=== PATIENT | female | born 1950 | race Caucasian/White ===

== ENCOUNTER 2021-12-26 08:45 | Day surgery (SDC) | payer MEDICARE, OTHER ==
[2021-12-26] MEDS ORDERED: LACTATED RINGERS 1,000 ML IV ONE (09:11)
[2021-12-26] MEDS ORDERED: CEFAZOLIN SODIUM IN 0.9 % NACL 2 GM/50 ML BAG IV ONE (09:32)
--- NOTE | 2021-12-26 10:07 | ANESTHESIA ---
Pre-Anesthesia VS, & Labs - Diagnosis R breast CA - Procedure R breast lumpectomy Vital Signs: Temp Pulse Resp BP Pulse Ox 36.6 C 65 16 149/91 H 97 12/26/21 09:05 12/26/21 09:05 12/26/21 09:05 12/26/21 09:05 12/26/21 09:05 Height: 5 ft 6 in Weight (kg): 98.2 kg Body Mass Index: 34.9 BMI Classification: Obese - NPO >8 hours - Is Patient ?: No Home Medications and Allergies Home Medications: Ambulatory Orders Aspirin [Aspirin EC] 81 mg PO DAILY 12/20/21 Atorvastatin Calcium 40 mg PO DAILY 12/20/21 Levothyroxine Sodium [Levothyroxine] 150 mcg PO DAILY 12/20/21 Lisinopril [Zestril] 40 mg PO DAILY 12/20/21 N-Acetycysteine 1,200 mg PO DAILY 12/20/21 PARoxetine HCl [Paxil] 20 mg PO DAILY 12/20/21 Sumatriptan Succinate [Imitrex] 50 mg PO PRN PRN 12/20/21 hydroCHLOROthiazide [Hydrodiuril] 12.5 mg PO DAILY 12/20/21 Aspirin [Aspirin EC] 81 mg PO DAILY 12/20/21 Atorvastatin Calcium 40 mg PO DAILY 12/20/21 Levothyroxine Sodium [Levothyroxine] 150 mcg PO DAILY 12/20/21 Lisinopril [Zestril] 40 mg PO DAILY 12/20/21 N-Acetycysteine 1,200 mg PO DAILY 12/20/21 PARoxetine HCl [Paxil] 20 mg PO DAILY 12/20/21 Sumatriptan Succinate [Imitrex] 50 mg PO PRN PRN 12/20/21 hydroCHLOROthiazide [Hydrodiuril] 12.5 mg PO DAILY 12/20/21 Allergies/Adverse Reactions: Allergies Allergy/AdvReac Type Severity Reaction Status Date / Time No Known Drug Allergies Allergy Verified 12/20/21 15:33 Anes History & Medical History - Anesthetic History Anesthesia Complications: reports: Difficult airway Family history of Anesthesia Complications: Denies Family history of Malignant Hyperthermia: Denies - Medical History Cardiovascular: reports: Hypertension, High cholesterol, Murmur, Other (carotid disease) Pulmonary: reports: None, Other (recent cold-approx 3 weeks ago, now resolved) Gastrointestinal: reports: Other Urinary: reports: Chronic bladder infection Neuro: reports: TIA (multiple TIAs) Musculoskeletal: reports: Gout Endocrine/Autoimmune: reports: HyPOthyroidism Skin: reports: None History of Cancer?: Yes - Surgical History General: reports: Cholecystectomy, Other Eyes Ears Nose Throat (EENT): reports: Tonsil/Adenoidectomy Cardiothoracic: reports: Vascular surgery, Other (R CEA) Gynecologic: reports: Dilation and currettage - Other History Other History: multiple rounds of radiation to 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 and prior difficult intubation Exam General: Alert, Oriented x3, Cooperative Dental: Poor dentition (poor dentition due to radiation) Mouth Openin Fingerbreadth Neck Mobility: Reduced Mallampati classification: III Thyromental Distance: 4-6 cm Respiratory: Lungs clear Cardiovascular: Regular rate (tissue to anterior neck hard and stiff upon palpation from multiple rounds of radiation to neck) Mental/Cognitive Status: Alert/Oriented X3 Cognitive Status: Within normal limits Plan Anesthesia Type: General Consent for Procedure(s) Verified and Reviewed: Yes Code Status: Attempt Resuscitation ASA classification: 3-Severe systemic disease Is this case an emergency?: No
[2021-12-26] MEDS ORDERED: fentaNYL 100 MCG/2 ML VIAL IVP PRN (10:24)
[2021-12-26] MEDS ORDERED: ATROPINE ABBOJECT 1 MG/10 ML SYRINGE IVP PRN (10:24)
[2021-12-26] MEDS ORDERED: ePHEDrine 50 MG/ML VIAL IVP PRN (10:24)
[2021-12-26] MEDS ORDERED: NALOXONE 0.4 MG/ML VIAL IVP PRN (10:24)
[2021-12-26] MEDS ORDERED: ONDANSETRON 4 MG/2 ML VIAL IVP PRN ×2 (10:24→13:27)
[2021-12-26] MEDS ORDERED: HYDROmorphone 0.5 MG/0.5 ML SYRINGE IVP PRN (10:24)
[2021-12-26] MEDS ORDERED: MORPHINE 2 MG/ML CARPUJECT IVP PRN (10:24)
[2021-12-26] MEDS ORDERED: LACTATED RINGERS 1,000 ML IV SCH (11:00)
[2021-12-26] MEDS ORDERED: MIDAZOLAM 2 MG/2 ML VIAL ONE (11:26)
[2021-12-26] MEDS ORDERED: fentaNYL 100 MCG/2 ML VIAL ONE (11:27)
[2021-12-26] MEDS ORDERED: PROPOFOL 200 MG/20 ML VIAL IVP ONE (11:27)
[2021-12-26] MEDS ORDERED: LIDOCAINE TOPICAL 4% 50 ML BOTTLE ONE (11:31)
[2021-12-26] MEDS ORDERED: BUPIVACAINE 0.25% PF 30 ML VIAL ONE (12:19)
[2021-12-26] MEDS ORDERED: LIDOCAINE 2%-EPI 1:100000 20 ML MDV ONE (12:20)
[2021-12-26] MEDS ORDERED: LIDOCAINE-MPF 1% 10 ML AMP SUBQ ONE (12:33)
[2021-12-26] MEDS ORDERED: LIDOCAINE-MPF 1% 10 ML AMP ONE (12:38)
[2021-12-26] MEDS ORDERED: ONDANSETRON 4 MG/2 ML VIAL ONE (12:41)
[2021-12-26] MEDS ORDERED: DEXAMETHASONE 4 MG/ML VIAL ONE (12:41)
[2021-12-26] MEDS ORDERED: ROCURONIUM 50 MG/5 ML VIAL ONE (12:57)
[2021-12-26] MEDS ORDERED: LIDOCAINE 2%-EPI 1:100000 20 ML MDV SUBQ ONE (13:05)
[2021-12-26] MEDS ORDERED: BUPIVACAINE 0.25% PF 30 ML VIAL SUBQ ONE (13:06)
[2021-12-26] MEDS ORDERED: SUGAMMADEX 200 MG/2 ML VIAL IVP ONE (13:20)
--- NOTE | 2021-12-26 13:22 | OPERATIVE REPORT ---
Operative Report - General Procedure Date: 12/26/21 Planned Procedure: Right breast lumpectomy and sentinel node dissection following needle localization and mapping Pre-Op Diagnosis: Biopsy-proven right breast cancer Procedure Performed: Right breast lumpectomy and sentinel node dissection following needle localization and mapping Post Op Diagnosis: Biopsy-proven right breast cancer - Procedure Note Primary Surgeon: Nicolás Anesthesia Provider: Kolby Torre Anesthesia Technique: General ET tube Pathology: 1. [place] node number 1-10-second count too numerous to count 2. [place] node number 2 - 10-second count [id number] 3. [place] node number 3-10-second count [id number] 4. Right breast specimen marked with a short stitch superior, long stitch lateral, and double stitch anterior. 5. Background in the axilla was 7, background in the room was 0 Estimated Blood Loss (mL): 10 Findings: Clip, wire, and lesion, all contained within the specimen. Complications: None apparent - Other Other Information/Narrative: After obtaining informed consent, the patient was brought to the operating room and placed in the supine position on the operating table. Following successful induction of general endotracheal anesthesia, appropriate padding of all bony prominences, and placement of appropriate monitors, the right breast was prepped and draped in the standard surgical fashion. A timeout was held per scope protocol. All elements of the surgical safety checklist were followed before, during, and after the procedure. We began the procedure with a sentinel node dissection. The site of the brightest node had been marked in radiology with 2 skin marker axis. The neoprobe was used to identify the site of greatest uptake at level 2 in the patient's axilla. An incision was created over this area of uptake and carried through the skin and subcutaneous tissue to enter the axillary node packet. The first sentinel node was identified. It was noted to be slightly enlarged but otherwise grossly normal in appearance. It was carefully dissected free from surrounding stop structures sharply, all lymphatics and vasculature were addressed with clips prior to division. The node was liberated into the field. 10-second counts are recorded. Survey of the axilla revealed a second target immediately posterior to the first. This node was quite small and normal in appearance. It was carefully dissected free from surrounding stop structures sharply, all lymphatics and vasculature were addressed with clips prior to division. The node was liberated into the field. 10-second counts are recorded. A third sentinel node was identified superior to the second. 10- second counts were recorded. All afferrent and efferent lymphatics and vasculature were addressed prior to division. The node was liberated into the field and passed from the table. 10-second counts were recorded. Background in the axilla was checked and found to be 7-13. Background in the room was 0. We turned our attention to the right breast mass. As it was at its 11:00 in the posterior aspect of the breast, it was accessible through the axillary incisionThat it already been created. Through the skin portion of the incision only, I directed dissection inferiorly toward the retromammary bursa, mass and wire.From the retromammary bursa, I was able to palpate the wire and the lesion.This area was gently grasped and sharply dissected free from surrounding structures. The attached wire was clipped anteriorly so that it could be pulled through the breast posteriorly and out to the axillary incision.The mass was carefully marked for orientation and submitted for specimen radiograph. The wound was checked for hemostasis. It was irrigated again with warm water. The specimen xray was examined and found to contain the target clip and lesion well centered. Clips were placed within the cavity from which the mass was excised to help guide radiation therapy.The wound was then closed in 2 layers with Vicryl and Monocryl sutures. All sponge, needle, and instrument counts were correct at the conclusion of the case. The patient was let awakened anesthesia without difficulty and taken to the postanesthesia care unit in good condition.
[2021-12-26] MEDS ORDERED: LACTATED RINGERS 200 ML IV ONE (13:26)
[2021-12-26] MEDS ORDERED: IBUPROFEN 600 MG TABLET PO PRN (13:27)
[2021-12-26] MEDS ORDERED: ACETAMINOPHEN 325 MG TABLET PO PRN (13:27)
[2021-12-26] MEDS ORDERED: oxyCODONE 5 MG TABLET PO PRN (13:27)
[2021-12-26 14:02] VITALS: BP 132/70
--- NOTE | 2021-12-26 14:21 | ANESTHESIA POST OP EVALUATION ---
Anesthesia Post Eval - Post Anesthesia Eval Vitals: Last Vital Signs Temp 36.6 C 12/26/21 14:00 Pulse 76 12/26/21 14:00 Resp 16 12/26/21 14:00 BP 132/70 H 12/26/21 14:00 Pulse Ox 99 12/26/21 14:00 CV Function Including HR & BP: Stable Pain Control: Satisfactory Nausea & Vomiting: Negative Mental Status: Baseline Respiratory Status: Airway Patent Hydration Status: Satisfactory Anesthesia Complications: None
--- NOTE | 2021-12-26 17:39 | Nuclear Medicine Report ---
PROCEDURE: Lymph Node Scintigraphy INDICATIONS: RT BREAST CA RADIOPHARMACEUTICAL: 0.5-1.0 mCi Millipore filtered Tc-99m sulfur colloid. TECHNIQUE: The area around the nipple was prepped and draped in a sterile fashion. Tc-99m sulfur colloid was in jected intra-dermally in the outer edge of the areola in the right breast. Images were obtained subs equently. A body contour outline was obtained. FINDINGS: There is a lymph node in the ipsilateral axilla, which is marked on the skin and the images for refer ring physician. IMPRESSION: [place] lymph node mapping for right breast cancer. Reviewed by: Job Weiner MD on 12/26/2021 5:38 PM PDT Approved by: Job Weiner MD on 12/26/2021 5:38 PM PDT Station ID: [id number]
--- NOTE | 2021-12-27 15:41 | Ultrasound Report ---
WIRE LOCALIZATION RIGHT BREAST: 12/26/2021 CLINICAL: Right Breast wire placement. Correlation is made to exams dated: 12/21/2021 breast MRI, 11/21/2021 ultrasound biopsy, 11/21/2021 babak mogram, 10/27/2021 ultrasound, 10/27/2021 mammogram, and 07/27/2021 mammogram - [facility]. A wire localization was performed for the 0.8 cm mass located in the right breast at 11 o'clock middl e depth 9 cm from the nipple. The skin was prepped in the usual manner. A wire was inserted adjacen t to the marker. IMPRESSION: WIRE LOCALIZATION Wire localization for the 0.8 cm mass in the right breast at 11 o'clock middle depth 9 cm from the ni pple was successful. This exam was interpreted at Station ID: [id number]. Artis Tejada M.D. jr/:12/26/2021 16:47:26 BI-RADS CATEGORY: () - Unspecified - other recall n/a LATERALITY: (B)
== END 2021-12-26 08:46 | disposition home or self-care (01) ==
LOC: DI 08:45
PROVIDERS: ATTEND Surgery
PROC: 07B50ZZ Excision of Right Axillary Lymphatic, Open Approach (ICD-10-PCS; 2021-12-26)
PROC: 0HBT0ZZ Excision of Right Breast, Open Approach (ICD-10-PCS; principal; 2021-12-26 12:00)
DX: C50.411 Malignant neoplasm of upper-outer quadrant of right female breast (principal); Z17.0 Estrogen receptor positive status [ER+]; I10 Essential (primary) hypertension; E03.9 Hypothyroidism, unspecified; E66.9 Obesity, unspecified; E78.00 Pure hypercholesterolemia, unspecified; Z68.41 Body mass index [BMI] 40.0-44.9, adult; Z79.82 Long term (current) use of aspirin; Z79.890 Hormone replacement therapy; Z79.899 Other long term (current) drug therapy; Z86.73 Personal history of transient ischemic attack (TIA), and cerebral infarction without residual deficits
CPT/HCPCS: 19285; 78195